=== PATIENT | male | born 1945 | race Caucasian/White ===

== ENCOUNTER 2018-01-21 21:29 | Inpatient (IN) | payer MEDICARE ==
[2018-01-21] MEDS ORDERED: SODIUM CHLORIDE 0.9% 1,000 ML IV STA (22:03)
[2018-01-21] MEDS ORDERED: ONDANSETRON 4 MG/2 ML VIAL IVP STA (22:03)
[2018-01-21] MEDS ORDERED: ACETAMINOPHEN TAB 500 MG TAB PO STA (22:06)
[2018-01-21] MEDS ORDERED: cefTRIAXone IN SWFI 2,000 MG/20 ML SYRINGE IVP STA (22:06)
[2018-01-21 22:21] LABS: Basophils % (A) 0 %; Eosinophils % (A) 0 %; HCT 37.7 % (39.0-53.0); HGB 12.7 gm/dL (13.0-17.5); Lymphocytes # (A) 0.2 k/uL (1.0-4.8); Lymphocytes % (A) 6 %; MCH 31.5 pg (25.0-35.0); MCHC 33.6 g/dL (31.0-37.0); MCV 93.8 fL (80.0-100.0); Monocytes # (A) 0.2 k/uL (0-1.0); Monocytes % (A) 5 %; Neutrophils # (A) 3.3 k/uL (1.3-7.7); Neutrophils % (A) 87 %; RBC 4.02 m/uL (4.30-5.90); RDW 13.4 % (11.5-15.5); WBC 3.8 k/uL (3.8-10.6)
[2018-01-21 22:29] LABS: INR 1.2 (<1.2); Partial Thromboplastin Time 27.1 sec (22.0-30.0); Prothrombin Time 11.7 sec (9.0-12.0)
[2018-01-21 22:31] LABS: Albumin 3.3 g/dL (3.5-5.0); Calcium 8.7 mg/dL (8.4-10.2); Potassium 4.4 mmol/L (3.5-5.1); Total Bilirubin 0.7 mg/dL (0.2-1.3); Total Protein 5.9 g/dL (6.3-8.2)
--- NOTE | 2018-01-21 22:54 | XR ---
EXAMINATION TYPE: XR chest 2V DATE OF EXAM: 01/21/2018 COMPARISON: NONE HISTORY: Nausea and fever TECHNIQUE: Frontal and lateral views of the chest are obtained. FINDINGS: Heart and mediastinum are normal. Lungs are clear. Diaphragm is normal. There are chest le ads. Bony thorax is intact. IMPRESSION: Normal chest.
--- NOTE | 2018-01-21 22:55 | XR ---
EXAMINATION TYPE: XR abdomen 2V DATE OF EXAM: 01/21/2018 COMPARISON: NONE HISTORY: Nausea and fever TECHNIQUE: 2 views FINDINGS: Bowel gas pattern is normal. There is no sign of intestinal obstruction or pneumoperitoneum . Fecal pattern is normal. There is a phlebolith in the pelvis on the left side. Lung bases are clear . IMPRESSION: Nonacute abdomen. L5 laminectomy defect noted.
[2018-01-21 22:57] LABS: Creatine Kinase MB 0.4 ng/mL (0.0-2.4); Troponin I 0.042 ng/mL (0.000-0.034)
[2018-01-21 23:11] LABS: Platelet Count 67 k/uL (150-450)
[2018-01-22 00:05] LABS: Amorphous Sediment,Urine Rare /hpf; Appearance,Urine Turbid (Clear); Bilirubin,Urine Negative (Negative); Blood,Urine Moderate (Negative); Color,Urine Yellow; Glucose,Urine (UA) Negative (Negative); Ketones,Urine Negative (Negative); Leukocyte Esterase,Urine Negative (Negative); Mucus,Urine Occasional /hpf; Nitrite,Urine Negative (Negative); PH, Urine 5.5 (5.0-8.0); Protein,Urine 2+ (Negative); RBC,Urine 3 /hpf (0-5); Urobilinogen,Urine <2.0 mg/dL (<2.0); WBC,Urine 10 /hpf (0-5)
--- NOTE | 2018-01-22 00:05 | ED ---
Weakness HPI - General Chief complaint: Weakness Stated complaint: Weakness/Fever Time Seen by Provider: 01/21/18 21:49 Source: patient Mode of arrival: wheelchair Limitations: no limitations - History of Present Illness Initial comments: 72 years old male has a diarrhea for the last 3-4 days, today he had a nausea and vomiting he moved his bowels multiple times he feels very weak he also had a fever yesterday and today he had a fever he had a chills here his shakes and now went to the bathroom multiple times he denies any recent use of antibiotics. He is from [place] he noticed a pack a bite on his right leg. He denies any headache no neck stiffness no chest pain no shortness of breath no abdominal pain no frequency urgency dysuria - Related Data Home Medications Medication Instructions Recorded Confirmed Cholecalciferol [Vitamin D3] 1,000 unit PO DAILY 01/21/18 01/21/18 Lisinopril (Unknown Dose) 1 tab PO DAILY 01/21/18 01/21/18 Mometasone Furoate [Nasonex Nasal 1 - 2 spr EA NOSTRIL DAILY PRN 01/21/18 [place]] Allergies Allergy/AdvReac Type Severity Reaction Status Date / Time No Known Allergies Allergy Verified 01/21/18 22:17 Review of Systems ROS Statement: Those systems with pertinent positive or pertinent negative responses have been documented in the HPI. ROS Other: All systems not noted in ROS Statement are negative. Past Medical History Past Medical History: Hypertension History of Any Multi-Drug Resistant Organisms: None Reported Past Surgical History: Orthopedic Surgery Additional Past Surgical History / Comment(s): Hernia surgey Past Psychological History: No Psychological Hx Reported Smoking Status: Never smoker Past Alcohol Use History: Occasional Past Drug Use History: None Reported General Exam - General Exam Comments Initial Comments: General: The patient is awake, he falls asleep easily and looks tired but he wakes up and GCS is 15 Skin: Skin is warm and dry and no rashes or lesions are noted. Signs of any tick induced infection on the right posterior thigh. He had a tick bite Eye: Pupils are equal, round and reactive to light, extra-ocular movements are intact; there is normal conjunctiva bilaterally. Ears, nose, mouth and throat: There are moist mucous membranes and no oral lesions. Neck: The neck is supple, there is no tenderness . Cardiovascular: There is a regular rate and rhythm. No murmur, rub or gallop is appreciated. Respiratory: To auscultation bilateral, no wheezing no rhonchi no distress respiratory noriega noticed Gastrointestinal: Soft, non-distended, non-tender abdomen without masses or organomegaly noted. There is no rebound or guarding present. Bowel sounds are unremarkable. No focal area of tenderness noticed Back: There is no tenderness to palpation in the midline. There is no obvious deformity. Musculoskeletal: Normal ROM, no tenderness, There is no pedal edema. There is no calf tenderness or swelling. No cords were appreciated. Neurological: CN II-XII intact, Cranial nerves III through XII are intact. There are no obvious motor or sensory deficits. Coordination appears grossly intact. Speech is normal. Psychiatric: Cooperative, appropriate mood & affect, normal judgment. Limitations: no limitations Course Vital Signs 01/21/18 01/21/18 01/21/18 21:31 23:00 23:28 Temperature 102.8 F H 100.9 F H Pulse Rate 105 H 77 Respiratory 20 16 Rate Blood Pressure 135/69 119/57 O2 Sat by Pulse 94 L 94 L Oximetry Patient's reassessment reveals a low platelet count of 67 CBC otherwise are normal INR is normal troponin is elevated though patient hasn't no chest pain AST and ALT both are 320 and 313 respectively KUB and chest x-ray are unremarkable, differential diagnoses or fever or generalized weakness sepsis? Thrombocytopenia elevated LFTs diarrhea and the tick bite, we have ordered Lyme' s titer considering his fever and tachycardia and lethargy I would not treat her with empiric antibiotics as sepsis fluids as well as elevated troponin is concerned he has no history of heart disease his EKG showed bundle branch block there was no STEMI and now will consult cardiology EKG Findings - EKG Comments: EKG Findings:: EKG is normal sinus rhythm ventricular rate is 82 NE interval is 156 QRS duration is 146 QT/QTc is 376/439 there is right bundle branch block. Review of this EKG does not reveal any ST elevation or ST depression, we do not have any old EKG to compare with Medical Decision Making - Lab Data Result diagrams: 01/21/18 22:12 01/21/18 22:12 Lab Results 01/21/18 01/21/18 01/21/18 Range/Units 22:12 22:12 22:12 WBC 3.8 (3.8-10.6) k/uL RBC 4.02 L (4.30-5.90) m/uL Hgb 12.7 L (13.0-17.5) gm/dL Hct 37.7 L (39.0-53.0) % MCV 93.8 (80.0-100.0) fL MCH 31.5 (25.0-35.0) pg MCHC 33.6 (31.0-37.0) g/dL RDW 13.4 (11.5-15.5) % Plt Count 67 L (150-450) k/uL Neutrophils % 87 % Lymphocytes % 6 % Monocytes % 5 % Eosinophils % 0 % Basophils % 0 % Neutrophils # 3.3 (1.3-7.7) k/uL Lymphocytes # 0.2 L (1.0-4.8) k/uL Monocytes # 0.2 (0-1.0) k/uL Eosinophils # 0.0 (0-0.7) k/uL Basophils # 0.0 (0-0.2) k/uL Manual Slide Review Performed PT (9.0-12.0) sec INR (<1.2) APTT (22.0-30.0) sec Sodium 134 L (137-145) mmol/L Potassium 4.4 (3.5-5.1) mmol/L Chloride 102 (98-107) mmol/L Carbon Dioxide 23 (22-30) mmol/L Anion Gap 9 mmol/L BUN 29 H (9-20) mg/dL Creatinine 1.02 (0.66-1.25) mg/dL Est GFR (CKD-EPI)AfAm 84 (>60 ml/min/1.73 sqM) Est GFR (CKD-EPI)NonAf 73 (>60 ml/min/1.73 sqM) Glucose 121 H (74-99) mg/dL Plasma Lactic Acid [place] (0.7-2.0) mmol/L Calcium 8.7 (8.4-10.2) mg/dL Total Bilirubin 0.7 (0.2-1.3) mg/dL AST 320 H (17-59) U/L ALT 313 H (21-72) U/L Alkaline Phosphatase 117 (38-126) U/L Total Creatine Kinase 108 (55-170) U/L CK-MB (CK-2) 0.4 (0.0-2.4) ng/mL CK-MB (CK-2) Rel Index 0.4 Troponin I 0.042 H* (0.000-0.034) ng/mL Total Protein 5.9 L (6.3-8.2) g/dL Albumin 3.3 L (3.5-5.0) g/dL Urine Color Urine Appearance (Clear) Urine pH (5.0-8.0) Ur Specific [place] (1.001-1.035) Urine Protein (Negative) Urine Glucose (UA) (Negative) Urine Ketones (Negative) Urine Blood (Negative) Urine Nitrite (Negative) Urine Bilirubin (Negative) Urine Urobilinogen (<2.0) mg/dL Ur Leukocyte Esterase (Negative) Urine RBC (0-5) /hpf Urine WBC (0-5) /hpf Amorphous Sediment (None) /hpf Urine Mucus (None) /hpf 01/21/18 01/21/18 01/21/18 Range/Units 22:12 22:12 23:52 WBC (3.8-10.6) k/uL RBC (4.30-5.90) m/uL Hgb (13.0-17.5) gm/dL Hct (39.0-53.0) % MCV (80.0-100.0) fL MCH (25.0-35.0) pg MCHC (31.0-37.0) g/dL RDW (11.5-15.5) % Plt Count (150-450) k/uL Neutrophils % % Lymphocytes % % Monocytes % % Eosinophils % % Basophils % % Neutrophils # (1.3-7.7) k/uL Lymphocytes # (1.0-4.8) k/uL Monocytes # (0-1.0) k/uL Eosinophils # (0-0.7) k/uL Basophils # (0-0.2) k/uL Manual Slide Review PT 11.7 (9.0-12.0) sec INR 1.2 H (<1.2) APTT 27.1 (22.0-30.0) sec Sodium (137-145) mmol/L Potassium (3.5-5.1) mmol/L Chloride (98-107) mmol/L Carbon Dioxide (22-30) mmol/L Anion Gap mmol/L BUN (9-20) mg/dL Creatinine (0.66-1.25) mg/dL Est GFR (CKD-EPI)AfAm (>60 ml/min/1.73 sqM) Est GFR (CKD-EPI)NonAf (>60 ml/min/1.73 sqM) Glucose (74-99) mg/dL Plasma Lactic Acid [place] 0.8 (0.7-2.0) mmol/L Calcium (8.4-10.2) mg/dL Total Bilirubin (0.2-1.3) mg/dL AST (17-59) U/L ALT (21-72) U/L Alkaline Phosphatase (38-126) U/L Total Creatine Kinase (55-170) U/L CK-MB (CK-2) (0.0-2.4) ng/mL CK-MB (CK-2) Rel Index Troponin I (0.000-0.034) ng/mL Total Protein (6.3-8.2) g/dL Albumin (3.5-5.0) g/dL Urine Color Yellow Urine Appearance Turbid (Clear) Urine pH 5.5 (5.0-8.0) Ur Specific [place] 1.020 (1.001-1.035) Urine Protein 2+ H (Negative) Urine Glucose (UA) Negative (Negative) Urine Ketones Negative (Negative) Urine Blood Moderate H (Negative) Urine Nitrite Negative (Negative) Urine Bilirubin Negative (Negative) Urine Urobilinogen <2.0 (<2.0) mg/dL Ur Leukocyte Esterase Negative (Negative) Urine RBC 3 (0-5) /hpf Urine WBC 10 H (0-5) /hpf Amorphous Sediment Rare H (None) /hpf Urine Mucus Occasional H (None) /hpf Disposition Clinical Impression: Fever, Generalized weakness, Sepsis, Thrombocytopenia, Diarrhea, Tick bite Disposition: ADMITTED IP TO THIS HOSP Condition: Good Referrals: Nonstaff,Physician [Primary Care Provider] - 1-2 days
[2018-01-22] MEDS ORDERED: MORPHINE SULFATE 4 MG/ML SYRINGE IVP PRN (00:23)
[2018-01-22] MEDS ORDERED: NITROGLYCERIN SL TABS 0.4 MG TAB SUBLINGUAL PRN (00:23)
[2018-01-22] MEDS: PIPERACILLIN-TAZOBACTAM 3.375 GM in DEXTROSE/WATER 1 50ML.BAG IVPB SCH ×2 (01:21→09:00)
[2018-01-22 01:34] VITALS: BMI 24.4
[2018-01-22 05:21] LABS: Creatine Kinase MB 0.6 ng/mL (0.0-2.4)
[2018-01-22 05:27] LABS: Troponin I 0.038 ng/mL (0.000-0.034)
[2018-01-22] MEDS ORDERED: ASPIRIN 325 MG TAB ONE (06:18)
[2018-01-22] MEDS: ASPIRIN 325 MG TAB PO SCH (06:19)
[2018-01-22] MEDS: ACETAMINOPHEN TAB 500 MG TAB PO PRN ×3 (09:00→21:12)
[2018-01-22 10:45] LABS: Creatine Kinase MB 0.3 ng/mL (0.0-2.4)
[2018-01-22 10:51] LABS: Troponin I 0.062 ng/mL (0.000-0.034)
--- NOTE | 2018-01-22 11:57 | P.HPIM ---
History of Present Illness This is a pleasant 72 years old male with past medical history of hypertension and bundle branch block who presents because of high fever of 100.2 as per patient and at bedside about 4 days ago, at that time he was traveling with his to [place] in [place] where originally is from [place] , also patient was complaining of from diarrhea over the last 3 days gradually improved and now he has normal bowel movement this morning. Patient was was taking a shower 2 days ago he noticed fatigue on the medial lower right thigh and he is off with some healed tiny ulcer with mild erythema, as the right is significantly improved compared to 2 days ago. Patient also complains of generalized weakness In the ED patient was noticed to have normal white BC of 3.8, hemoglobin 12.7, platelets low at 67, and patient was started on Zosyn. Patient also troponins were high, he has history of bundle-branch block, echo is ordered and cardiology consult. Patient urinalysis shows some blood in the urine Past Medical History Past Medical History: Hypertension Additional Past Medical History / Comment(s): Pt notes hx of bundle branch block History of Any Multi-Drug Resistant Organisms: None Reported Past Surgical History: Orthopedic Surgery Additional Past Surgical History / Comment(s): Hernia surgey Past Psychological History: No Psychological Hx Reported Smoking Status: Never smoker Past Alcohol Use History: Occasional Past Drug Use History: None Reported Medications and Allergies Home Medications Medication Instructions Recorded Confirmed Type Cholecalciferol [Vitamin D3] 1,000 unit PO DAILY 01/21/18 01/21/18 History Mometasone Furoate [Nasonex Nasal 1 - 2 spr EA NOSTRIL DAILY PRN 01/21/18 History [place]] Lisinopril [Zestril] 5 mg PO DAILY 01/22/18 01/22/18 History Allergies Allergy/AdvReac Type Severity Reaction Status Date / Time No Known Allergies Allergy Verified 01/21/18 22:17 Physical Exam Vitals: Vital Signs Temp Pulse Pulse Resp BP BP Pulse Ox 01/22/18 07:42 100.9 F H 83 16 132/62 92 L 01/22/18 07:02 99.8 F H 01/22/18 06:16 102.3 F H 01/22/18 04:00 80 12 112/55 93 L 01/22/18 01:03 98.4 F 77 12 120/58 96 01/22/18 00:47 100.3 F H 76 16 117/61 95 01/22/18 00:23 96 01/21/18 23:28 100.9 F H 01/21/18 23:00 77 16 119/57 94 L 01/21/18 21:31 102.8 F H 105 H 20 135/69 94 L Intake and Output 01/21/18 01/22/18 01/22/18 22:59 06:59 14:59 Intake Total 360 Balance 360 Intake: Oral 360 Other: # Voids 1 # Bowel Movements 0 Weight 79.379 kg 81.3 kg GENERAL: The patient is alert and oriented x3, not in any acute distress. Well developed, well nourished. HEENT: Pupils are round and equally reacting to light. EOMI. No scleral icterus. No conjunctival pallor. Normocephalic, atraumatic. No pharyngeal erythema. No thyromegaly. CARDIOVASCULAR: S1 and S2 present. No murmurs, rubs, or gallops. PULMONARY: Chest is clear to auscultation, no wheezing or crackles. ABDOMEN: Soft, nontender, nondistended, normoactive bowel sounds. No palpable organomegaly. MUSCULOSKELETAL: No joint swelling or deformity. EXTREMITIES: No cyanosis, clubbing, or pedal edema. -tiny healed ulcer on the right lower thigh NEUROLOGICAL: Gross neurological examination did not reveal any focal deficits. SKIN: No rashes. Results CBC & Chem 7: 01/21/18 22:12 01/21/18 22:12 Labs: Abnormal Lab Results - Last 24 Hours (Table) 01/21/18 01/21/18 01/21/18 Range/Units 22:12 22:12 22:12 RBC 4.02 L (4.30-5.90) m/uL Hgb 12.7 L (13.0-17.5) gm/dL Hct 37.7 L (39.0-53.0) % Plt Count 67 L (150-450) k/uL Lymphocytes # 0.2 L (1.0-4.8) k/uL INR (<1.2) Sodium 134 L (137-145) mmol/L BUN 29 H (9-20) mg/dL Glucose 121 H (74-99) mg/dL AST 320 H (17-59) U/L ALT 313 H (21-72) U/L Troponin I 0.042 H* (0.000-0.034) ng/mL Total Protein 5.9 L (6.3-8.2) g/dL Albumin 3.3 L (3.5-5.0) g/dL Urine Protein (Negative) Urine Blood (Negative) Urine WBC (0-5) /hpf Amorphous Sediment (None) /hpf Urine Mucus (None) /hpf 01/21/18 01/21/18 01/22/18 Range/Units 22:12 23:52 04:11 RBC (4.30-5.90) m/uL Hgb (13.0-17.5) gm/dL Hct (39.0-53.0) % Plt Count (150-450) k/uL Lymphocytes # (1.0-4.8) k/uL INR 1.2 H (<1.2) Sodium (137-145) mmol/L BUN (9-20) mg/dL Glucose (74-99) mg/dL AST (17-59) U/L ALT (21-72) U/L Troponin I 0.038 H* (0.000-0.034) ng/mL Total Protein (6.3-8.2) g/dL Albumin (3.5-5.0) g/dL Urine Protein 2+ H (Negative) Urine Blood Moderate H (Negative) Urine WBC 10 H (0-5) /hpf Amorphous Sediment Rare H (None) /hpf Urine Mucus Occasional H (None) /hpf 01/22/18 Range/Units 09:53 RBC (4.30-5.90) m/uL Hgb (13.0-17.5) gm/dL Hct (39.0-53.0) % Plt Count (150-450) k/uL Lymphocytes # (1.0-4.8) k/uL INR (<1.2) Sodium (137-145) mmol/L BUN (9-20) mg/dL Glucose (74-99) mg/dL AST (17-59) U/L ALT (21-72) U/L Troponin I 0.062 H* (0.000-0.034) ng/mL Total Protein (6.3-8.2) g/dL Albumin (3.5-5.0) g/dL Urine Protein (Negative) Urine Blood (Negative) Urine WBC (0-5) /hpf Amorphous Sediment (None) /hpf Urine Mucus (None) /hpf Microbiology - Last 24 Hours (Table) 01/21/18 23:52 Urine Culture - Preliminary Urine,Voided Thrombosis Risk Factor Assmnt - Choose All That Apply Any of the Below Risk Factors Present?: No Each Risk Factor Represents 2 Points: Age 61-74 years Thrombosis Risk Factor Assessment Total Risk Factor Score: 2 Thrombosis Risk Factor Assessment Level: Low Risk Assessment and Plan Plan: -Fever of unknown origin, history of recent tick bite, patient is a started on Zosyn. Call ID consult -Positive troponins, check echo, call cardiology consult -Generalized weakness, check PT OT DVT prophylaxis on SCDs, patient is mobile and he has low platelets, risks of heparin or other anticoagulation is more than the benefit GI prophylaxis Protonix
[2018-01-22] MEDS: PANTOPRAZOLE 40 MG/10 ML VIAL IVP SCH (12:58)
--- NOTE | 2018-01-22 13:50 | ECHOF ---
Referral Reason:-positive troponin MEASUREMENTS -------- HEIGHT: 162.6 cm WEIGHT: 81.2 kg BP: IVSd: 1.3 cm (0.6 - 1.1) LVIDd: 5.0 cm (3.9 - 5.3) LVPWd: 1.2 cm (0.6 - 1.1) IVSs: 1.3 cm LVIDs: 4.5 cm LVPWs: 1.3 cm LA Diam: 2.8 cm (2.7 - 3.8) LAESV Index (A-L): 31.45 ml/m Ao Diam: 3.7 cm (2.0 - 3.7) AV Cusp: 2.3 cm (1.5 - 2.6) LA Diam: 3.9 cm (2.7 - 3.8) MV EXCURSION: 25.683 mm (> 18.000) MV EF SLOPE: 113 mm/s (70 - 150) EPSS: 0.8 cm MV E [place]: 0.74 m/s MV DecT: 124 ms MV A [place]: 0.82 m/s MV E/A Ratio: 0.90 RAP: 5.00 mmHg RVSP: 22.92 mmHg FINDINGS -------- Sinus rhythm with extra systolic beats. This was a technically good study. The left ventricular size is normal. There is mild concentric left ventricular hypertrophy. Overa ll left ventricular systolic function is mild-moderately impaired with, an EF between 40 - 45 %. The right ventricle is normal in size. The left atrial size is normal. LA is moderately dilated 34-39 ml/m2 The right atrial size is normal. The aortic valve is trileaflet, and appears structurally normal. No aortic stenosis or regurgitation. Mild mitral annular calcification present. Mild mitral regurgitation is present. Mild tricuspid regurgitation present. There is no evidence of pulmonary hypertension. The right v entricular systolic pressure, as measured by Doppler, is 22.92mmHg. There is no pulmonic regurgitation present. The aortic root size is normal. There is no pericardial effusion. CONCLUSIONS -------- 1. Sinus rhythm with extra systolic beats. 2. The left ventricular size is normal. 3. There is mild concentric left ventricular hypertrophy. 4. Overall left ventricular systolic function is mild-moderately impaired with, an EF between 40 - 45 %. 5. The left atrial size is normal. 6. LA is moderately dilated 34-39 ml/m2 7. The aortic valve is trileaflet, and appears structurally normal. No aortic stenosis or regurgitati on. 8. Mild mitral annular calcification present. 9. Mild mitral regurgitation is present. 10. Mild tricuspid regurgitation present. 11. There is no evidence of pulmonary hypertension. 12. The right ventricular systolic pressure, as measured by Doppler, is 22.92mmHg. 13. There is no pulmonic regurgitation present. 14. The aortic root size is normal. 15. There is no pericardial effusion. MARKETING DEVELOPER: Karen Gonzalez RDCS
[2018-01-22 14:32] LABS: Lyme IgG/IgM 1.6 Index
--- NOTE | 2018-01-22 14:35 | P.CRDCN ---
History of Present Illness Consult date: 01/22/18 Requesting physician: Lisa Aguirre Reason for Consult (text): Abnormal troponins Chief complaint: Diarrhea, fatigue, fever History of present illness: This is a 72-year-old male patient with history of hypertension, prior left bundle-branch block, who presented to the hospital after a three-day duration or more of diarrhea, patient also was noticing significant fatigue and generalized weakness. In the emergency room, patient presented with a temperature of 102.8, blood pressure was 135/60 with a heart rate of 105, 94% on room air. Since admission, patient has subsequently been running fevers. Blood pressure today 110/50 with a heart rate in the 70s. White blood cell count 3.8, hemoglobin 12.7, platelet count 67. Sodium 134, potassium 4.4, BUN 29, creatinine 1.0. Liver enzymes elevated, AST 320, ALT 313. Troponin 0.04, 0.03, 0.06. Echocardiogram with Doppler study was performed which revealed an ejection fraction of 40-45%. Cardiology's perspective, we'll decrease the aspirin to 81 mg daily, patient is not on a statin and will not be initiated on 1 because of the abnormal liver enzymes. If the blood pressure also being marginal at this time we will hold off on initiating TJ inhibitor beta osiel at this time. Past Medical History Past Medical History: Hypertension Additional Past Medical History / Comment(s): Pt notes hx of bundle branch block History of Any Multi-Drug Resistant Organisms: None Reported Past Surgical History: Orthopedic Surgery Additional Past Surgical History / Comment(s): Hernia surgey Past Psychological History: No Psychological Hx Reported Smoking Status: Never smoker Past Alcohol Use History: Occasional Past Drug Use History: None Reported Medications and Allergies Home Medications Medication Instructions Recorded Confirmed Type Cholecalciferol [Vitamin D3] 1,000 unit PO DAILY 01/21/18 01/21/18 History Mometasone Furoate [Nasonex Nasal 1 - 2 spr EA NOSTRIL DAILY PRN 01/21/18 History [place]] Lisinopril [Zestril] 5 mg PO DAILY 01/22/18 01/22/18 History Allergies Allergy/AdvReac Type Severity Reaction Status Date / Time No Known Allergies Allergy Verified 01/21/18 22:17 Physical Exam Vitals: Vital Signs Temp Pulse Pulse Resp BP BP Pulse Ox 01/22/18 12:00 97.1 F L 76 16 111/55 01/22/18 07:42 100.9 F H 83 16 132/62 92 L 01/22/18 07:02 99.8 F H 01/22/18 06:16 102.3 F H 01/22/18 04:00 80 12 112/55 93 L 01/22/18 01:03 98.4 F 77 12 120/58 96 01/22/18 00:47 100.3 F H 76 16 117/61 95 01/22/18 00:23 96 01/21/18 23:28 100.9 F H 01/21/18 23:00 77 16 119/57 94 L 01/21/18 21:31 102.8 F H 105 H 20 135/69 94 L Intake and Output 01/21/18 01/22/18 01/22/18 22:59 06:59 14:59 Intake Total 360 Balance 360 Intake: Oral 360 Other: # Voids 1 1 # Bowel Movements 0 Weight 79.379 kg 81.3 kg PHYSICAL EXAMINATION: 72-year-old gentleman in no acute distress at the time of my examination. GENERAL: HEENT: Head is atraumatic, normocephalic. Pupils equal, round. Sclera anicteric. Conjunctiva are clear. Mucous membranes of the mouth are moist. Neck is supple. There is no elevated jugular venous pressure.] bruit is heard. HEART EXAMINATION: Heart S1, S2 normal. No murmur or gallop heard. CHEST EXAMINATION: Lungs are clear to auscultation and precussion. No chest wall tenderness is noted on palpation or with deep breathing. ABDOMEN: Soft, nontender. Bowel sounds are heard. No organomegaly noted. EXTREMITIES: 2+ peripheral pulses with no evidence of peripheral edema and no calf tenderness noted. NEUROLOGIC patient is awake, alert and oriented -3. . Results 01/21/18 22:12 01/21/18 22:12 Cardiac Enzymes 01/21/18 01/21/18 01/22/18 Range/Units 22:12 22:12 04:11 AST 320 H (17-59) U/L CK-MB (CK-2) 0.4 0.6 (0.0-2.4) ng/mL Troponin I 0.042 H* 0.038 H* (0.000-0.034) ng/mL 01/22/18 Range/Units 09:53 AST (17-59) U/L CK-MB (CK-2) 0.3 (0.0-2.4) ng/mL Troponin I 0.062 H* (0.000-0.034) ng/mL Coagulation 01/21/18 Range/Units 22:12 PT 11.7 (9.0-12.0) sec APTT 27.1 (22.0-30.0) sec CBC 01/21/18 Range/Units 22:12 WBC 3.8 (3.8-10.6) k/uL RBC 4.02 L (4.30-5.90) m/uL Hgb 12.7 L (13.0-17.5) gm/dL Hct 37.7 L (39.0-53.0) % Plt Count 67 L (150-450) k/uL Comprehensive Metabolic Panel 01/21/18 Range/Units 22:12 Sodium 134 L (137-145) mmol/L Potassium 4.4 (3.5-5.1) mmol/L Chloride 102 (98-107) mmol/L Carbon Dioxide 23 (22-30) mmol/L BUN 29 H (9-20) mg/dL Creatinine 1.02 (0.66-1.25) mg/dL Glucose 121 H (74-99) mg/dL Calcium 8.7 (8.4-10.2) mg/dL AST 320 H (17-59) U/L ALT 313 H (21-72) U/L Alkaline Phosphatase 117 (38-126) U/L Total Protein 5.9 L (6.3-8.2) g/dL Albumin 3.3 L (3.5-5.0) g/dL Current Medications Generic Name Dose Route Start Last Admin Trade Name Freq PRN Reason Stop Dose Admin Acetaminophen 500 mg 01/22/18 08:49 01/22/18 09:00 Tylenol Tab PO 500 mg Q6HR PRN Administration Fever and/ or Pain Aspirin 325 mg 01/23/18 09:00 01/22/18 06:19 Aspirin PO 325 mg DAILY NAI Administration Piperacillin/Tazobactam/ 50 mls @ 12.5 mls/hr 01/22/18 02:00 01/22/18 09:00 Dextrose 3.375 gm/ IV Solution IVPB 12.5 mls/hr Q8H NAI Administration Morphine Sulfate 2 mg 01/22/18 00:23 Morphine Sulfate (Inj) IVP Q5M PRN Chest Pain Nitroglycerin 0.4 mg 01/22/18 00:23 Nitrostat SUBLINGUAL Q5M PRN Chest Pain Pantoprazole Sodium 40 mg 01/22/18 12:00 01/22/18 12:58 Protonix IVP 40 mg DAILY NAI Administration Intake and Output 01/21/18 01/22/18 01/22/18 22:59 06:59 14:59 Intake Total 360 Balance 360 Intake: Oral 360 Other: # Voids 1 1 # Bowel Movements 0 Weight 79.379 kg 81.3 kg 01/21/18 22:12 01/21/18 22:12 EKG Interpretations (text) EKG shows a normal sinus rhythm with a left bundle-branch block pattern. Assessment and Plan Plan: Assessment and plan #1 fever of unknown origin #2 mildly abnormal troponins, not consistent with acute coronary syndrome, echocardiogram with Doppler study reveals an LV function of 40-45%. Denies having any chest discomfort. We will keep the patient on a baby aspirin, he is not on a statin at this time, we will not initiate 1 because of abnormal liver enzymes. Blood pressure is marginal so we will hold off on any beta osiel Tj at this time. Plan Continue to monitor the patient to, if blood pressure tolerates we will initiate small dose beta osiel and reinitiate TJ inhibitor which the patient was taking at home. Continue maximum medical therapy. Once the patient is stable and fever is resolved we may recommend undergoing stress test as an outpatient. DNP note has been reviewed, I agree with a documented findings and plan of care. Patient was seen and examined.
[2018-01-22] MEDS ORDERED: ONDANSETRON 4 MG/2 ML VIAL IVP PRN (15:24)
[2018-01-22] MEDS: cefTRIAXone IN SWFI 2,000 MG/20 ML SYRINGE IVP SCH (16:12)
[2018-01-22] MEDS: metroNIDAZOLE-NS PMX 500 MG in SALINE 1 100ML.BAG IVPB SCH ×2 (16:12→22:57)
[2018-01-23] MEDS: ACETAMINOPHEN TAB 500 MG TAB PO PRN ×2 (02:46→10:38)
--- NOTE | 2018-01-23 07:37 | CONS ---
CONSULTATION DATE OF SERVICE: 01/22/2018. REASON FOR CONSULTATION: Sepsis. HISTORY OF PRESENT ILLNESS: The patient is a 72-year-old male who is currently traveling from [place]. The patient started getting sick about 3 days ago when he started having diarrhea, explosive with multiple loose stool. The patient has felt nauseated but no vomiting and no abdominal pain. The patient did recall the night before he may have eaten stromboli that did not taste that good. For the same reason, the patient has been evaluated in Urgent Care about 2 days ago in [place] where they were told that they possibly have a GI bug of 24 hours and this should go away. The patient's symptoms continued to get worse and the patient started having a fever with rigors and chills. There has been generalized weakness. With these symptoms, the patient presented to the [facility] ER as the patient was on the way to [place]. The patient has been evaluated by the ER physician. The patient did have a chest x-ray that was negative. An abdominal x-ray which shows a nonacute abdomen. The patient did have a fever 102.8 degrees Fahrenheit, and has been tachycardic with a creatinine in the 90s. White count significantly elevated though. The patient has been started on Zosyn and admitted to hospital. Infectious Disease was consulted for further recommendations of antibiotic therapy. The patient's did mention that the patient did have a tic attached to his right posterior thigh. By the time she removed it, he was really engorged and the patient did have surrounding erythema where the tic has bitten him. REVIEW OF SYSTEMS: Constitutional: Positive for weakness along with the fever. Eyes no complaint. ENT no complaint. Respiratory no complaint. Cardiovascular no complaint. Genitourinary no complaint. GASTROINTESTINAL: As per HPI. Musculoskeletal no complaint. Integumentary: as per HPI. Psychological no complaint. Endocrine no complaint. Neurological no complaint. PAST MEDICAL HISTORY: Significant for hypertension. PAST SURGICAL HISTORY: Hernia repair. SOCIAL HISTORY: No history of smoking. Occasionally drinks. No drug use. From [place], currently traveling on the way to the [place]. FAMILY HISTORY: No pertinent findings noticed. ALLERGIES: No known drug allergies. MEDICATIONS: Include the patient is currently on Zosyn, Tylenol, aspirin, , Protonix. EXAMINATION: VITAL SIGNS: Blood pressure is 115/53 with a pulse of 92, temperature 100.2, . He is 94% on room air. GENERAL description is an elderly male lying in bed in no distress. No tachypnea or accessory muscles for respiration use. HEENT: Shows no pallor or scleral icterus. Oral mucosa membranes dry. No significant erythema or thrush. NECK: Trachea is central. No thyromegaly. LUNGS: Unlabored breathing. Clear to auscultation anteriorly. No wheeze or crackles. HEART: S1, S2. Regular rate and rhythm. ABDOMEN: Soft, no tenderness. No guarding or rigidity. No organomegaly. EXTREMITIES: No edema of the feet. SKIN: Examination no rash or mass palpable. NEUROLOGICAL: Patient is awake, alert and oriented times three. Mood and affect normal. Examination of the right posterior thigh where the patient did have a tic bite and currently with no rash. LABS: Hemoglobin is 12.7, white count 3.8 with a BUN of 29, creatinine 1.02. Electrolytes have been normal. Liver enzymes are elevated. Troponin was slightly elevated as well. Urine is negative. DIAGNOSTIC IMPRESSION/PLAN: 1. Patient with sepsis in a patient who did have a fever and tachycardia, mild leukopenia source abdominal pain. Patient did have significant diarrhea that has been going on for about 3 days with a question of possible food poisoning or related to gram-negative pathogen or possible some . 2. Patient with right posterior thigh tic bite. The patient is from [place], question of possible early Lyme disease. PLAN: 1. We will discontinue Zosyn. 2. We will start the patient on Rocephin 2 g IV daily as well as Flagyl that should cover both the GI as well as possible Lyme disease. 3. Aggressive IV fluids. 4. We will follow up on his clinical condition and culture to further adjust medication if needed. Thank you for this consultation. We will follow this patient along with you. MMODL / IJN: [id number] /
[2018-01-23] MEDS ORDERED: DEXTROSE 5%-0.9% NACL 1,000 ML IV SCH (08:45)
[2018-01-23 09:26] LABS: Basophils % (A) 0 %; Eosinophils % (A) 0 %; HGB 12.6 gm/dL (13.0-17.5); Lymphocytes # (A) 0.5 k/uL (1.0-4.8); Lymphocytes % (A) 11 %; MCH 32.3 pg (25.0-35.0); MCHC 34.2 g/dL (31.0-37.0); MCV 94.4 fL (80.0-100.0); Mean Platelet Volume 12.2; Monocytes # (A) 0.2 k/uL (0-1.0); Monocytes % (A) 4 %; Neutrophils # (A) 3.5 k/uL (1.3-7.7); Neutrophils % (A) 81 %; RBC 3.92 m/uL (4.30-5.90); RDW 13.4 % (11.5-15.5); WBC 4.3 k/uL (3.8-10.6)
[2018-01-23 09:29] LABS: Albumin 2.8 g/dL (3.5-5.0); Bilirubin, Delta 0.7 mg/dL (0.0-0.2); Bilirubin,Unconjugated 0.2 mg/dL (0.0-1.1); Calcium 8.4 mg/dL (8.4-10.2); Potassium 4.1 mmol/L (3.5-5.1); Total Bilirubin 0.9 mg/dL (0.2-1.3); Total Protein 5.3 g/dL (6.3-8.2)
[2018-01-23 09:41] LABS: Platelet Count 36 k/uL (150-450)
[2018-01-23] MEDS: metroNIDAZOLE-NS PMX 500 MG in SALINE 1 100ML.BAG IVPB SCH ×2 (09:59→18:49)
[2018-01-23] MEDS: ASPIRIN 325 MG TAB PO SCH (10:00)
[2018-01-23] MEDS: PANTOPRAZOLE 40 MG/10 ML VIAL IVP SCH (10:00)
[2018-01-23] MEDS: cefTRIAXone IN SWFI 2,000 MG/20 ML SYRINGE IVP SCH (10:32)
[2018-01-23] MEDS ORDERED: SODIUM CHLORIDE 0.9% 1,000 ML IV ONE (12:10)
[2018-01-23] MEDS ORDERED: ACETAMINOPHEN TAB 500 MG TAB PO PRN (12:12)
--- NOTE | 2018-01-23 13:04 | CT ---
EXAMINATION TYPE: CT brain wo con DATE OF EXAM: 01/23/2018 COMPARISON: NONE HISTORY: weakness and confusion CT DLP: 1029.9 mGycm Automated exposure control for dose reduction was used. TECHNIQUE: CT scan of the head is performed without contrast. FINDINGS: There is no acute intracranial hemorrhage or midline shift identified. There is diffuse v entricular and sulcal prominence consistent with diffuse age-related cerebral atrophy. Suspicious ext ra-axial fluid collection is seen. There is low-attenuation in the periventricular white matter consi stent with chronic small vessel ischemic change. Scant mucosal thickening in the ethmoid sinuses. Th e globes are intact and the remaining visualized sinuses are clear. Atherosclerosis is seen of the intracranial vasculature. IMPRESSION: No acute intracranial hemorrhage or midline shift. There is diffuse age-related cerebra l atrophy and chronic small vessel ischemic change noted.
[2018-01-23 13:30] LABS: Reticulocyte % 0.6 % (0.5-2.0)
[2018-01-23 14:06] LABS: ABG Base Excess -4.2 mmol/L; ABG HCO3 20 mmol/L (21-25); ABG Oxygen Saturation 89.1 % (94-97); ABG PCO2 30 mmHg (35-45); ABG PH 7.43 (7.35-7.45); ABG PO2 54 mmHg (83-108); ABG TCO2 21 mmol/L (19-24)
--- NOTE | 2018-01-23 14:44 | XR ---
EXAMINATION TYPE: XR chest 1V portable DATE OF EXAM: 01/23/2018 COMPARISON: 01/21/2018 HISTORY: Hypoxemia TECHNIQUE: Single frontal view of the chest is obtained. FINDINGS: Left midlung multifocal patchy opacity and left basilar retrocardiac opacity are seen. Right lung rem ains clear. Chronic right hemidiaphragm elevation is seen. Cardiomediastinal silhouette is mildly enl arged. No pneumothorax. Osseous structures are intact. IMPRESSION: Multifocal left-sided new opacity suspicious for multifocal pneumonia.
[2018-01-23] MEDS ORDERED: IOPAMIDOL-300 CONTRAST 30 ML VIAL (ORAL USE) PO PRN (14:52)
[2018-01-23] MEDS ORDERED: LEVOFLOXACIN 500MG-D5W PMX 500 MG in DEXTROSE/WATER 1 100ML.BAG IVPB SCH (15:00)
[2018-01-23 15:07] LABS: INR 1.2 (<1.2); Partial Thromboplastin Time 26.6 sec (22.0-30.0); Prothrombin Time 11.6 sec (9.0-12.0)
--- NOTE | 2018-01-23 15:34 | PN ---
PROGRESS NOTE . DATE OF SERVICE: 01/23/2018. REASON FOR FOLLOWUP: Fever. INTERVAL HISTORY: The patient did have fever this morning, 102.7. The patient denies having any chest pain. He did have one small bowel movement for the patient . Feeling nauseated but no vomiting. No significant chest pain. No cough. EXAMINATION: Blood pressure is 108/54 with a pulse of 83. Temperature 100.6. T-max 102.7. He is 95% on 3 L nasal cannula. General description is an elderly male up in the bed in no distress. Respiratory system: Unlabored breathing, clear to auscultation anteriorly. Heart S1, S2. Regular rate and rhythm. Abdomen soft. No tenderness. No guarding or rigidity. Extremities: No edema of the feet. LABS: Hemoglobin is 12.3, white count 4.3, retic count is 36, lactic acid 2.8. BUN of 33, creatinine 2.02. DIAGNOSTIC IMPRESSION AND PLAN: Patient admitted to the hospital with a fever, significant GI symptoms, the patient who does have diarrhea to be presenting symptoms with question of possible food poisoning versus likely gastroenteritis with persistent fever. A CT of the abdomen and pelvis will be obtained with oral contrast only as the patient did have pain in his right knee. Continue with Rocephin and Flagyl. Continue supportive care. MMODL / IJN: [id number] /
[2018-01-23] MEDS ORDERED: AMPICILLIN-SULBACTAM 3 GM in SODIUM CHLORIDE 0.9% 100 ML IVPB SCH (16:00)
[2018-01-23 16:23] LABS: Amorphous Sediment,Urine Rare /hpf; Appearance,Urine Cloudy (Clear); Bacteria,Urine Rare /hpf; Bilirubin,Urine Negative (Negative); Blood,Urine Small (Negative); Color,Urine Yellow; Glucose,Urine (UA) Negative (Negative); Hyaline Casts,Urine 1 /lpf (0-2); Ketones,Urine Negative (Negative); Leukocyte Esterase,Urine Negative (Negative); Mucus,Urine Rare /hpf; Nitrite,Urine Negative (Negative); PH, Urine 5.5 (5.0-8.0); Protein,Urine 1+ (Negative); RBC,Urine 12 /hpf (0-5); Specific Gravity,Urine 1.012 (1.001-1.035); Urobilinogen,Urine <2.0 mg/dL (<2.0); WBC,Urine 9 /hpf (0-5)
[2018-01-23 17:27] VITALS: BP 116/58; PULSE 84; RESP 20; TEMP 99.2
[2018-01-23 17:27] LABS: Basophils % (A) 1 %; Eosinophils % (A) 0 %; HCT 35.5 % (39.0-53.0); Lymphocytes # (A) 0.4 k/uL (1.0-4.8); Lymphocytes % (A) 9 %; MCH 32.2 pg (25.0-35.0); MCHC 33.6 g/dL (31.0-37.0); MCV 95.7 fL (80.0-100.0); Mean Platelet Volume 10.2; Monocytes # (A) 0.1 k/uL (0-1.0); Monocytes % (A) 3 %; Neutrophils # (A) 3.5 k/uL (1.3-7.7); Neutrophils % (A) 83 %; RBC 3.71 m/uL (4.30-5.90); RDW 13.5 % (11.5-15.5); WBC 4.2 k/uL (3.8-10.6)
[2018-01-23 17:40] LABS: Albumin 2.6 g/dL (3.5-5.0); Calcium 8.2 mg/dL (8.4-10.2); Potassium 4.1 mmol/L (3.5-5.1); Total Bilirubin 0.7 mg/dL (0.2-1.3); Total Protein 5.1 g/dL (6.3-8.2)
--- NOTE | 2018-01-23 17:42 | P.CONS ---
History of Present Illness - Reason for Consult Consult date: 01/23/18 Thrombocytopenia Requesting physician: Lisa Aguirre - Chief Complaint Fevers, Chills - History of Present Illness Jose Antonio is a pleasant man who presented with his supportive to the emergency department at the suggestion of urgent care and their PCP. He resides in [facility] and him and his took a road trip up to [place] for their 50th high school reunion. They were traveling to [place] and attended the reunion last weekend. They felt they both had caught a virus on Thursday, although she was improving and Jose Antonio persistently and progressively became worse. He has a known medical history of hypertension and abnormal EKG BBB. Otherwise healthy. He developed a fever around 100-101 approximately 4 days ago. He noticed not feeling well after having lunch at this time and associated symptoms of diarrhea for a few days. Last week while in the shower he noticed a black spot that was "itchy" on his right inner thigh, he identified it as a tick bite, removed the tick in the shower and the discomfort of that area disapeared. Since removing the implanted tick the area of the bite is now scabbed with minimal erythema. He stated that it has almost resolved and improved a lot since he noticed it. He does complain of some generalized weakness. His states he has not been himself and has been going in and out of inappropriate responses and confusion states. As they were driving home they decided to stay overnight prior to entering [place] and be evaluated further in the Emergency Department. On Arrival he had a fever of 103. Initial ED work-up showed WBC 3.8, Hgb 12.7, platlet count of 67. Today his platelet count is 36. No s/s bleeding. His creatinine is trending up. His Liver enzymes are also elevated. Troponins were elevated, urine sample did show some RBC. [facility]on cultures were ordered and IV abx with Zosyn was initiated. Lyme test was positive although IgG and Igm Negative. A CT Brain was completed for the intermittent confusion. Per the and RN at bedside it appears the confusion and inappropriate behavior seem to be associated with high fevers. Review of Systems A 14 point review of systems assessed and completed and all negative except HPI. Past Medical History Past Medical History: Hypertension Additional Past Medical History / Comment(s): Pt notes hx of bundle branch block History of Any Multi-Drug Resistant Organisms: None Reported Past Surgical History: Orthopedic Surgery Additional Past Surgical History / Comment(s): Hernia surgey Past Psychological History: No Psychological Hx Reported Smoking Status: Never smoker Past Alcohol Use History: Occasional Past Drug Use History: None Reported Medications and Allergies Home Medications Medication Instructions Recorded Confirmed Type Cholecalciferol [Vitamin D3] 1,000 unit PO DAILY 01/21/18 01/21/18 History Mometasone Furoate [Nasonex Nasal 1 - 2 spr EA NOSTRIL DAILY PRN 01/21/18 History [place]] Lisinopril [Zestril] 5 mg PO DAILY 01/22/18 01/22/18 History Allergies Allergy/AdvReac Type Severity Reaction Status Date / Time No Known Allergies Allergy Verified 01/21/18 22:17 Physical Exam Vitals: Vital Signs Temp Pulse Resp BP Pulse Ox 01/23/18 15:36 102.7 F H 89 36 H 115/57 90 L 01/23/18 14:52 101.0 F H 01/23/18 14:20 97.5 F L 64 23 109/58 90 L 01/23/18 12:00 16 01/23/18 11:40 100.6 F H 83 20 108/54 90 L 01/23/18 10:51 102.7 F H 01/23/18 08:15 16 01/23/18 06:00 99.7 F H 69 22 103/56 90 L 01/22/18 23:35 102.0 F H 80 16 96/54 94 L 01/22/18 21:00 100.7 F H 74 18 99/52 93 L 01/22/18 18:33 97.9 F Intake and Output 01/23/18 01/23/18 01/23/18 06:59 14:59 22:59 Intake Total 600 Output Total 5 Balance 595 Intake: Oral 600 Output: Urine 3 Stool 2 Other: # Voids 1 1 - Constitutional General appearance: average body habitus, no acute distress - EENT Eyes: EOMI, PERRLA, dentition normal ENT: hard of hearing, NA/AT, normal oropharynx - Neck Neck: normal ROM - Respiratory Respiratory: bilateral: CTA (no increased effort) - Cardiovascular Heart rate: 121 Rhythm: irregularly irregular - Gastrointestinal General gastrointestinal: normal bowel sounds, soft - Integumentary Right small scabbed area with mild erythema, patient states from tick bite he removed Integumentary: pale - Neurologic Neurologic: CNII-XII intact, focal deficits - Musculoskeletal Musculoskeletal: generalized weakness, strength equal bilaterally - Psychiatric Psychiatric: A&O x's 3, appropriate affect, intact judgment & insight Results CBC & Chem 7: 01/23/18 08:41 01/23/18 08:41 Labs: Abnormal Lab Results - Last 24 Hours (Table) 01/23/18 01/23/18 01/23/18 Range/Units 08:41 08:41 08:41 RBC 3.92 L (4.30-5.90) m/uL Hgb 12.6 L (13.0-17.5) gm/dL Hct 37.0 L (39.0-53.0) % Plt Count 36 L* (150-450) k/uL Lymphocytes # 0.5 L (1.0-4.8) k/uL INR (<1.2) ABG pCO2 (35-45) mmHg ABG pO2 (83-108) mmHg ABG HCO3 (21-25) mmol/L ABG O2 Saturation (94-97) % BUN 33 H (9-20) mg/dL Creatinine 2.02 H (0.66-1.25) mg/dL Glucose 153 H (74-99) mg/dL Plasma Lactic Acid Kike (0.7-2.0) mmol/L Delta Bilirubin 0.7 H (0.0-0.2) mg/dL AST 184 H (17-59) U/L ALT 239 H (21-72) U/L Lactate Dehydrogenase 1024 H (313-618) U/L Total Protein 5.3 L (6.3-8.2) g/dL Albumin 2.8 L (3.5-5.0) g/dL Urine Protein (Negative) Urine Blood (Negative) Urine RBC (0-5) /hpf Urine WBC (0-5) /hpf Urine WBC Clumps (None) /hpf Amorphous Sediment (None) /hpf Urine Bacteria (None) /hpf Urine Mucus (None) /hpf 01/23/18 01/23/18 01/23/18 Range/Units 10:59 13:55 14:27 RBC (4.30-5.90) m/uL Hgb (13.0-17.5) gm/dL Hct (39.0-53.0) % Plt Count (150-450) k/uL Lymphocytes # (1.0-4.8) k/uL INR 1.2 H (<1.2) ABG pCO2 30 L (35-45) mmHg ABG pO2 54 L (83-108) mmHg ABG HCO3 20 L (21-25) mmol/L ABG O2 Saturation 89.1 L (94-97) % BUN (9-20) mg/dL Creatinine (0.66-1.25) mg/dL Glucose (74-99) mg/dL Plasma Lactic Acid Kike 2.8 H* (0.7-2.0) mmol/L Delta Bilirubin (0.0-0.2) mg/dL AST (17-59) U/L ALT (21-72) U/L Lactate Dehydrogenase (313-618) U/L Total Protein (6.3-8.2) g/dL Albumin (3.5-5.0) g/dL Urine Protein (Negative) Urine Blood (Negative) Urine RBC (0-5) /hpf Urine WBC (0-5) /hpf Urine WBC Clumps (None) /hpf Amorphous Sediment (None) /hpf Urine Bacteria (None) /hpf Urine Mucus (None) /hpf 01/23/18 01/23/18 Range/Units 14:27 16:02 RBC (4.30-5.90) m/uL Hgb (13.0-17.5) gm/dL Hct (39.0-53.0) % Plt Count (150-450) k/uL Lymphocytes # (1.0-4.8) k/uL INR (<1.2) ABG pCO2 (35-45) mmHg ABG pO2 (83-108) mmHg ABG HCO3 (21-25) mmol/L ABG O2 Saturation (94-97) % BUN (9-20) mg/dL Creatinine (0.66-1.25) mg/dL Glucose (74-99) mg/dL Plasma Lactic Acid Kike 2.2 H* (0.7-2.0) mmol/L Delta Bilirubin (0.0-0.2) mg/dL AST (17-59) U/L ALT (21-72) U/L Lactate Dehydrogenase (313-618) U/L Total Protein (6.3-8.2) g/dL Albumin (3.5-5.0) g/dL Urine Protein 1+ H (Negative) Urine Blood Small H (Negative) Urine RBC 12 H (0-5) /hpf Urine WBC 9 H (0-5) /hpf Urine WBC Clumps Few H (None) /hpf Amorphous Sediment Rare H (None) /hpf Urine Bacteria Rare H (None) /hpf Urine Mucus Rare H (None) /hpf Microbiology - Last 24 Hours (Table) 01/21/18 23:52 Urine Culture - Final Urine,Voided 01/21/18 22:12 Blood Culture - Preliminary Blood No Growth after 24 hours 01/22/18 11:00 Stool Culture - Preliminary Stool Chest x-ray: report reviewed (Right sided opacity consistent with underlying pneumonia) CT Scan - head: report reviewed (Negative for acute Etiology) Assessment and Plan Plan: Assessment and Recommendations: 1. Severe Thrombocytopenia - - Likely related to underlying picture of pneumonia and viral situation - Must consider other phenomenons such as DIC, TTP - Reviewed Peripheral smear and did not identify any schistocytes on the smear reviewed. I have ordered a schistocyte review, peripheral smear to also be reviewed by pathology, LDH, Haptoglobin (in the picture of a TTP you will usually see underlying hemolysis and significant anemia, hgb was only mildly decreased and lowered more with dilution from IV hydration bolus for hypotension and fevers), check reticulocytes, fibrinogen, repeat coags PT, INR, and PTT. - If schistocytes are identified this would be considered an emergent situation and plasmapheresis would be required as TTP can have a high mortality if plasma pheresis is not initiated quickly. The differential of TTP is less likely in this overall picture, as no schistos seen on smear, hemoglobin is not severe, and bilirubin is not elevated (usually seen with hemolysis). 2. Acute Renal Insufficiency - Doubled in 48 hours - Nephrology Consult would be resonable - Monitor closely 3. Elevated Liver Transiminitis - Monitor Daily CMP - Likley due to underlying Viral picture - Consider imaging of abdomen 4. Community Acquired Pneumonia - IV Antibiotics 5. Sepsis/SIRS Criteria - Fevers, Tachycardia, Hypotension - Infectious Disease Following - IV Hydration/Bolus to Continue - Continue Supportive care IV Antibiotics - Awaiting results of [facility] - Cultures - Appears to be underlying Viral Picture with acute onset, high fevers - Recent Tick Bite with Positive Lyme Titer (IgG and Igm Negtive, patient states he has had a tick bite in past, difficult to differentiate if an acute/ active disease) 6. Acute Respiratory Insuffiency/Hypoxia - - Oxygen Saturation 90-92% on 6Liters Nasal Canula - No known underlying pulmonary disease - Pulmonary Consult may be beneficial - Right lung opacity consistent with underlying pneumonia identified on chest xray Physician Attestation: I have completed the full history and physical of this patient and agree with above dictation by Tori Swain NP. Dictated as a scribe. Time with Patient: Greater than 30
[2018-01-23 17:49] LABS: Platelet Count 25 k/uL (150-450)
--- NOTE | 2018-01-23 22:32 | P.DS ---
Providers Date of admission: 01/22/18 00:23 Attending physician: Lisa Aguirre Consults: 01/22/18 00:23 Consult Physician Stat Consulting Provider: Marcelina Koroma Consult Reason/Comments: Sepsis, fever, thrombocytopenia, question of a tick bite Do you want consulting provider notified?: Yes Consult Physician Urgent Consulting Provider: Cassie Guerra Consult Reason/Comments: Elevated troponin Do you want consulting provider notified?: Yes 01/23/18 10:52 Consult Physician Stat Consulting Provider: Beto Perez Consult Reason/Comments: critical platelet count 36 Do you want consulting provider notified?: Yes 01/23/18 17:34 Consult Physician Routine Consulting Provider: Millie Kramer Consult Reason/Comments: acute renal insufficiency Do you want consulting provider notified?: Yes Primary care physician: Physician Nonsta Hospital Course: This is a pleasant 72 years old male with past medical history of hypertension and bundle branch block who presents because of high fever of 100.2 as per patient and at bedside about 4 days ago, at that time he was traveling with his to [place] in [place] where originally is from [place] , also patient was complaining of from diarrhea over the last 3 days gradually improved but remained semisolid bowel movement Patient was was taking a shower 2 days ago he noticed fatigue on the medial lower right thigh and he is off with some healed tiny ulcer with mild erythema, as the right is significantly improved compared to 2 days ago. Patient also complains of generalized weakness, on admission pt was evaluated by ID team and they recommended ceftriaxone and flagyl , his AST 320, 184. MCKENNA 313,239. Troponin 0.042 , 0.038, 0.062. cr 1.02 and 2.02 and 2.14. Lactic a 2.8 and improved with hydration to 2.2. ABG 7.4/30/54. inr 1.2. WBC 4.2k, Hb 12 and platelets are dropping 67 to [address] of head was negative for acute process, CXR: no acute event (in ED) repeat CXR: left multifocal pna, lyme disease titre is positive but normal IgG/IgM at 1.6. pt bp. 116/58, HT 84 , temp was as high as 102.7F, O2 sat 91 % on 6 L , as per bed side PIERO Galvez his oxygen improved to 95% on transfer. pt antibiotic were changed to unasyn and Levaquin as per ID team. hematology were consulted for thrombocytopenia , unlikely this hemolysis as no significant drop in Hb and not rising bilirubin. peripheral smear as hematology team did not show any schistocytes. INR not elevated. cardiology team evaluated pt for mildly abnormal troponins, which are not consistent with acute coronary syndrome, echocardiogram with Doppler study reveals an LV function of 40-45%. Denies having any chest discomfort. We will keep the patient on a baby aspirin, no statin in view of his liver enz abnormality because of pt complex clinical picture , i spoke with Dr. Aj Lanza from ICU team at [facility] and discussed the case with her and she kindly accepted pt to be transfered to [facility], pt was sent by air transport. pt is found stable to be transferred , and benefits are more than risks.pt and family informed and they agree to transfer pt as per staff. prognosis remains guarded GENERAL: The patient is alert and oriented x3, not in any acute distress. Well developed, well nourished. HEENT: Pupils are round and equally reacting to light. EOMI. No scleral icterus. No conjunctival pallor. Normocephalic, atraumatic. No pharyngeal erythema. No thyromegaly. CARDIOVASCULAR: S1 and S2 present. No murmurs, rubs, or gallops. PULMONARY: Chest is clear to auscultation, no wheezing. left basal and mid zone crackles ABDOMEN: Soft, nontender, nondistended, normoactive bowel sounds. No palpable organomegaly. MUSCULOSKELETAL: No joint swelling or deformity. EXTREMITIES: No cyanosis, clubbing, or pedal edema. -tiny healed ulcer on the right lower thigh NEUROLOGICAL: Gross neurological examination did not reveal any focal deficits. SKIN: No rashes. Lymphatic system: no LAP noted in cervical and axilla or groin Patient Condition at Discharge: Stable Plan - Discharge Summary Discharge Rx Participant: Yes New Discharge Prescriptions: No Action Mometasone Furoate [Nasonex Nasal [place]] 1 - 2 spr EA NOSTRIL DAILY PRN PRN Reason: Congestion Cholecalciferol [Vitamin D3] 1,000 unit PO DAILY Lisinopril [Zestril] 5 mg PO DAILY Discharge Medication List Cholecalciferol [Vitamin D3] 1,000 unit PO DAILY 01/21/18 [History] Mometasone Furoate [Nasonex Nasal [place]] 1 - 2 spr EA NOSTRIL DAILY PRN [History] Lisinopril [Zestril] 5 mg PO DAILY 01/22/18 [History] Follow up Appointment(s)/Referral(s): Nonstaff,Physician [Primary Care Provider] - 1-2 days Discharge Disposition: [facility]
[2018-01-23 23:17] LABS: Hepatitis A Antibody IgM Non-Reactive (Non-Reactive); Hepatitis B Core IgM Non-Reactive (Non-Reactive)
== END 2018-01-23 18:59 | disposition short-term general hospital (02) | DRG 871 ==
LOC: EC 21:29 → 6SEL 01-22 00:23 → 4MS4W 01-22 23:01
PROVIDERS: ADMIT Hospitalist; ATTEND Hospitalist
DX: A41.9 Sepsis, unspecified organism (principal); J18.9 Pneumonia, unspecified organism; I10 Essential (primary) hypertension; I44.7 Left bundle-branch block, unspecified; R74.8 Abnormal levels of other serum enzymes; R19.7 Diarrhea, unspecified; R31.9 Hematuria, unspecified; D69.6 Thrombocytopenia, unspecified; N28.9 Disorder of kidney and ureter, unspecified; S70.361A Insect bite (nonvenomous), right thigh, initial encounter; R09.02 Hypoxemia; W57.XXXA Bitten or stung by nonvenomous insect and other nonvenomous arthropods, initial encounter; Z98.890 Other specified postprocedural states; Z79.899 Other long term (current) drug therapy
CPT/HCPCS: 36415; 36600; 70450; 71045; 71046; 74019; 80048; 80053; 80061; 80074; 80076; 81001; 82550; 82553; 82805; 83010; 83605; 83615; 84484; 85025; 85045; 85384; 85610; 85730; 86617; 86618; 87040; 87045; 87046; 87086; 93005; 93306; 96361; 96374; 96375; 99285